=== PATIENT | female | born 1965 | race Caucasian/White ===

== ENCOUNTER 2024-07-15 12:00 | Inpatient (IN) | payer MEDICARE ==
[2024-07-20] MEDS ORDERED: Acetaminophen 500 MG TAB ONE (09:45)
[2024-07-20] MEDS ORDERED: Ketorolac Tromethamine 30 MG (1 mL) VIAL ONE (09:45)
[2024-07-20] MEDS ORDERED: PROPOFOL 20 ML ONE ×2 (12:05→14:34)
[2024-07-20] MEDS ORDERED: fentaNYL 50 mcg/mL 1 mL Vial ONE ×4 (12:05→15:21)
[2024-07-20] MEDS ORDERED: Lidocaine 2% PF 5 ML VIAL ONE (12:06)
[2024-07-20] MEDS ORDERED: Bupivacaine/Epinephrine 0.25% 30 ML VIAL ONE (12:13)
[2024-07-20] MEDS ORDERED: CEFAZOLIN 2 GM VIAL ONE (12:13)
[2024-07-20] MEDS ORDERED: Rocuronium Bromide 10 MG/ML (10ML VIAL) ONE (12:16)
[2024-07-20] MEDS ORDERED: ePHEDrine Sulfate 50 MG/10 ML VIAL ONE (12:45)
[2024-07-20] MEDS ORDERED: HYDROmorphone 0.5 MG/0.5 ML SYRINGE ONE ×4 (15:26→16:19)
[2024-07-20] MEDS ORDERED: hydrALAZINE 20 MG/ML VIAL SLOW IVP PRN (15:50)
[2024-07-20] MEDS ORDERED: Promethazine HCl 25 MG/ML VIAL IM PRN (15:50)
[2024-07-20] MEDS ORDERED: Ipratropium/Albuterol 3 ML NEB NEB PRN (15:50)
[2024-07-20] MEDS: Ondansetron PF 4 MG/2 ML Vial IVP PRN (17:23)
[2024-07-20] MEDS: Ketorolac Tromethamine 30 MG (1 mL) VIAL IVP SCH (17:23)
[2024-07-20] MEDS: D5 1/2 NS w/20 mEq KCL 1,000 ML IV SCH (17:26)
[2024-07-20] MEDS: Morphine 4 MG/ML VIAL SLOW IVP PRN (20:01)
[2024-07-20] MEDS: Pantoprazole DR 40 MG TAB PO SCH (20:06)
[2024-07-20] MEDS: Losartan 50 MG TAB PO SCH (20:06)
[2024-07-20] MEDS: Famotidine 20 MG TAB PO SCH (20:06)
[2024-07-20] MEDS: Atorvastatin Calcium 10 MG TAB PO SCH (20:14)
[2024-07-20] MEDS: Famotidine/PF 20 mg/2ml Vial SLOW IVP SCH (21:11)
[2024-07-20] MEDS: Estradiol 1 MG TAB PO SCH (21:11)
[2024-07-21 04:18] LABS: #Basophils 0.01 10x3/uL (0.0-0.2); #Monocytes 0.43 10x3/uL (0.0-1.1); #Neutrophils 9.12 10x3/uL (1.5-8.4); %Basophils 0.1 % (0.0-2.0); %Monocytes 4.1 % (0.0-10.0); %Neutrophils 86.5 % (40.0-75.0); Hematocrit 36.1 % (34.9-44.5); Hemoglobin 11.5 g/dL (12.0-15.5); Mean Corpuscular HGB CONC 31.9 g/dL (32.0-36.0); Mean Corpuscular Hemoglobin 29.3 pg (27.0-33.0); Mean Corpuscular Volume 92.1 fL (81.6-98.3); Mean Platelet Volume 9.9 fL (7.4-10.4); Platelet Count 241 10x3/uL (150-450); RBC Distribution Width 11.9 % (11.5-14.5); Red Blood Cell (RBC) Count 3.92 10x6/uL (3.90-5.03); White Blood Cell (WBC) Count 10.5 10x3/uL (3.5-10.5)
[2024-07-21 04:29] LABS: Anion Gap 15 mmol/L (10-20); BUN (Urea Nitrogen) 13 mg/dL (9.8-20.1); Calc. Creatinine Clearance 0 mL/min (70-130); Carbon Dioxide 22 mmol/L (22-29); Chloride 103 mmol/L (98-107); Estimated GFR 78; Glucose 152 mg/dL (70-105); Potassium 5.2 mmol/L (3.5-5.1); Sodium 135 mmol/L (136-145)
[2024-07-21] MEDS: Morphine 2 MG/ML VIAL SLOW IVP PRN (04:35)
[2024-07-21 08:54] LABS: Troponin I Less than 0.010 ng/mL (< 0.028)
[2024-07-21 08:57] LABS: #Basophils 0.02 10x3/uL (0.0-0.2); #Monocytes 0.66 10x3/uL (0.0-1.1); #Neutrophils 12.16 10x3/uL (1.5-8.4); %Basophils 0.1 % (0.0-2.0); %Monocytes 4.6 % (0.0-10.0); Hematocrit 37.9 % (34.9-44.5); Mean Corpuscular HGB CONC 31.7 g/dL (32.0-36.0); Mean Corpuscular Hemoglobin 29.2 pg (27.0-33.0); Mean Corpuscular Volume 92.2 fL (81.6-98.3); Mean Platelet Volume 9.9 fL (7.4-10.4); Platelet Count 240 10x3/uL (150-450); Red Blood Cell (RBC) Count 4.11 10x6/uL (3.90-5.03); White Blood Cell (WBC) Count 14.3 10x3/uL (3.5-10.5)
[2024-07-21 09:07] LABS: Anion Gap 13 mmol/L (10-20); BUN (Urea Nitrogen) 12 mg/dL (9.8-20.1); Calc. Creatinine Clearance 0 mL/min (70-130); Calcium 9.1 mg/dL (7.8-10.44); Carbon Dioxide 24 mmol/L (22-29); Chloride 102 mmol/L (98-107); Estimated GFR 78; Glucose 121 mg/dL (70-105); Potassium 4.2 mmol/L (3.5-5.1); Sodium 135 mmol/L (136-145)
[2024-07-21 09:09] LABS: PTT 25.1 sec (22.0-33.0); Prothrombin Time 10.9 sec (9.5-12.1)
[2024-07-21] MEDS: Nitroglycerin 0.4 MG TAB (25 Tab Bottle) ONE (09:32)
[2024-07-21] MEDS: Aspirin 81 mg Enteric Coated Tablet ONE (09:33)
[2024-07-21] MEDS: Simethicone Chewable 80 MG TAB PO SCH (10:11)
[2024-07-21 12:36] VITALS: BP 124/73; TEMP 97.9
[2024-07-21] MEDS ORDERED: HYDROcodone/Acetaminophen 7.5/325 mg Tablet PO PRN (15:00)
[2024-07-21] MEDS ORDERED: Acetaminophen 325 MG TAB PO PRN (15:00)
== END 2024-07-21 15:19 | disposition home or self-care (01) | DRG 328 ==
LOC: CSHTELE 07-20 09:20 → EDSTATUS 07-20 12:00 → CSHTELE 07-20 17:14
PROVIDERS: ADMIT Specialist; ATTEND Specialist
PROC: 0BQT0ZZ Repair Diaphragm, Open Approach (ICD-10-PCS; principal; 2024-07-20)
PROC: 0DV40ZZ Restriction of Esophagogastric Junction, Open Approach (ICD-10-PCS; 2024-07-20)
PROC: 8E0W0CZ Robotic Assisted Procedure of Trunk Region, Open Approach (ICD-10-PCS; 2024-07-20)
DX: K44.9 Diaphragmatic hernia without obstruction or gangrene (principal); K21.9 Gastro-esophageal reflux disease without esophagitis; M19.90 Unspecified osteoarthritis, unspecified site; E78.00 Pure hypercholesterolemia, unspecified; I10 Essential (primary) hypertension; Z79.899 Other long term (current) drug therapy; Z98.890 Other specified postprocedural states; Z90.710 Acquired absence of both cervix and uterus; Z91.040 Latex allergy status; Z91.048 Other nonmedicinal substance allergy status
CPT/HCPCS: 36415; 71045; 80048; 84484; 85025; 85610; 85730; 93005; 93010; 94762; J1885; J2272; J2405; J2704; J3010; J3480; S2900

== ENCOUNTER 2024-07-15 12:04 | Outpatient (CLI) | payer MEDICARE ==
[2024-07-15 13:09] LABS: #Basophils 0.04 10x3/uL (0.0-0.2); #Eosinophils 0.05 10x3/uL (0.0-0.5); #Monocytes 0.49 10x3/uL (0.0-1.1); #Neutrophils 3.34 10x3/uL (1.5-8.4); %Basophils 0.6 % (0.0-2.0); %Eosinophils 0.8 % (0.0-6.0); %Lymphocytes 39.1 % (18.0-47.0); %Monocytes 7.6 % (0.0-10.0); %Neutrophils 51.7 % (40.0-75.0); Hematocrit 38.7 % (34.9-44.5); Hemoglobin 12.3 g/dL (12.0-15.5); Mean Corpuscular HGB CONC 31.8 g/dL (32.0-36.0); Mean Corpuscular Hemoglobin 29.1 pg (27.0-33.0); Mean Corpuscular Volume 91.7 fL (81.6-98.3); Mean Platelet Volume 10.1 fL (7.4-10.4); Platelet Count 251 10x3/uL (150-450); RBC Distribution Width 11.7 % (11.5-14.5); Red Blood Cell (RBC) Count 4.22 10x6/uL (3.90-5.03); White Blood Cell (WBC) Count 6.5 10x3/uL (3.5-10.5)
[2024-07-15 13:20] LABS: Anion Gap 15 mmol/L (10-20); BUN (Urea Nitrogen) 15 mg/dL (9.8-20.1); Calc. Creatinine Clearance 0 mL/min (70-130); Calcium 9.6 mg/dL (7.8-10.44); Carbon Dioxide 27 mmol/L (22-29); Chloride 101 mmol/L (98-107); Estimated GFR 72; Glucose 89 mg/dL (70-105); Potassium 4.4 mmol/L (3.5-5.1); Sodium 139 mmol/L (136-145)
== END 2024-07-15 12:05 | disposition home or self-care (01) ==
LOC: CSHLAB 12:04
PROVIDERS: ATTEND Specialist
DX: Z01.818 Encounter for other preprocedural examination (principal); K44.9 Diaphragmatic hernia without obstruction or gangrene; K21.9 Gastro-esophageal reflux disease without esophagitis
CPT/HCPCS: 71046; 80048; 85025; 93005; 93010

== ENCOUNTER 2024-10-22 15:01 | Outpatient (CLI) | payer MEDICARE, OTHER | END 2024-10-22 15:02 | disposition home or self-care (01) | LOC: CSHMAMMO 15:01 | PROVIDERS: ATTEND Family Medicine Sports Medicine | DX: Z12.31 Encounter for screening mammogram for malignant neoplasm of breast (principal); Z78.0 Asymptomatic menopausal state; M85.851 Other specified disorders of bone density and structure, right thigh; Z98.890 Other specified postprocedural states | CPT/HCPCS: 77063; 77067; 77080 ==